=== PATIENT | female | born 1960 | race African-American/Black ===

== ENCOUNTER 2021-09-16 12:11 | Day surgery (SDC) | payer MEDICARE | END 2021-09-16 13:54 | disposition home or self-care (01) | LOC: CSHSDC/OP 12:11 | PROVIDERS: ATTEND Nurse Practitioner Family | DX: Z23 Encounter for immunization (principal); U07.1 COVID-19 | CPT/HCPCS: 96365; M0243; Q0244; J3490 ==

== ENCOUNTER 2024-02-17 07:55 | Day surgery (SDC) | payer MEDICARE ==
[2024-02-17] MEDS ORDERED: Lidocaine 1% PF 5 ML VIAL ONE (08:35)
[2024-02-17] MEDS ORDERED: Lidocaine 1% w/Epinephrine 1:200K 30 ML VIAL ONE (08:35)
[2024-02-17] MEDS ORDERED: Sodium Bicarbonate 2.5 MEQ/5 ML SDV ONE (08:35)
[2024-02-17 09:53] VITALS: BP 121/79; TEMP 97.1
== END 2024-02-17 09:46 | disposition home or self-care (01) ==
LOC: CSHULT 07:55
PROVIDERS: ATTEND Otolaryngology Plastic Surgery within the Head & Neck
PROC: 0GBH3ZX Excision of Right Thyroid Gland Lobe, Percutaneous Approach, Diagnostic (ICD-10-PCS; principal; 2024-02-17)
DX: E04.9 Nontoxic goiter, unspecified (principal); E06.3 Autoimmune thyroiditis; R13.13 Dysphagia, pharyngeal phase; G47.30 Sleep apnea, unspecified; I10 Essential (primary) hypertension; E11.9 Type 2 diabetes mellitus without complications; E03.9 Hypothyroidism, unspecified; Z91.041 Radiographic dye allergy status; Z88.2 Allergy status to sulfonamides; Z88.0 Allergy status to penicillin; Z88.5 Allergy status to narcotic agent; Z79.82 Long term (current) use of aspirin; Z79.890 Hormone replacement therapy; Z79.02 Long term (current) use of antithrombotics/antiplatelets; Z79.85 Long-term (current) use of injectable non-insulin antidiabetic drugs; Z79.4 Long term (current) use of insulin
CPT/HCPCS: 10005; 88173